=== PATIENT | female | born 1960 ===

== ENCOUNTER 2025-02-02 10:28 | Outpatient (CLI) | payer OTHER, SELFPAY ==
--- NOTE | ~2025-02-02 | CT_ITS ---
EXAMINATION: CT abdomen pelvis w con DATE: 02/02/2025 11:05 INDICATION: Mesenteric adenitis. TECHNIQUE: Computed tomography (CT) of the abdomen and pelvis was performed with 100 mL Omnipaque 350 intravenous contrast. Automated exposure control and iterative reconstruction technique were employed. The dose-length product was 1024.18 mGy-cm. COMPARISON: None. FINDINGS: The visualized portions of the lung bases demonstrate mild atelectasis. Calcified right lung nodules are consistent with old granulomatous disease. No pleural effusion. The heart size is normal. No pericardial effusion. There is a small sliding hiatal hernia. There is a 14 mm hyperenhancing mass in right hepatic lobe. There are changes of cholecystectomy. Calcifications in the spleen are consistent with old granulomatous disease. The pancreas, adrenal glands, and left kidney are normal. There is a 3 mm stone in right kidney. There are no dilated loops of bowel. The appendix is normal. There is fat stranding at the root of the small bowel mesentery. There are no pathologically enlarged lym ph nodes. There is no free intraperitoneal fluid. There is severe lumbar spondylosis and moderate thoracic spondylosis. IMPRESSION: 1. Fat stranding at the root of the small bowel mesentery, which may be seen with edema or inflammation/scarring (mesenteric panniculitis). 2. Small sliding hiatal hernia. 3. 14 mm hyperenhancing liver mass. In the absence of known malignancy or chronic liver disease, this finding is likely a hemangioma or focal nodular hyperplasia. Reviewed, dictated and finalized at location E. IMPRESSION: 1. Fat stranding at the root of the small bowel mesentery, which may be seen wi th edema or inflammation/scarring (mesenteric panniculitis). 2. Small sliding hiatal hernia. 3. 14 mm hyperenhancing liver mass. In the absence of known malignancy or chron ic liver disease, this finding is likely a hemangioma or focal nodular hyperpla neil.
[2025-02-02 10:55] LABS: Estimated Glomerular Filt Rate > 60
== END 2025-02-02 10:29 | disposition home or self-care (01) ==
DX: I88.0 Nonspecific mesenteric lymphadenitis (principal)
CPT/HCPCS: 74177; Q9967